=== PATIENT | female | born 1965 | race Caucasian/White ===

== ENCOUNTER 2020-07-05 18:47 | Inpatient (IN) | payer MEDICAID ==
[~2020-07-05] VITALS: Ht 160 cm; Wt 84.1 kg
[2020-07-05 19:01] VITALS: Ht 160 cm; Wt 84.1 kg
[2020-07-05 20:32] LABS: microscopic required? YES; urine erythrocyte NEGATIVE (NEGATIVE)
[2020-07-05 20:38] LABS: BASOPHIL % 0.4 % (0-2); PLATELET COUNT 183 x10^3mcL (130-400); RED CELL DISTRIBUTION WIDTH 13.6 % (11.5-14.5)
[2020-07-05 20:42] LABS: CALCIUM 8.6 mg/dL (8.5-10.1); CARBON DIOXIDE 25.4 mmol/L (21-32); CHLORIDE SERUM 100 mmol/L (98-107); CREATININE SERUM 0.8 mg/dL (0.6-1.0); GFR1 > 60 mL/min; GLUCOSE SERUM 176 mg/dL (74-106); POTASSIUM SERUM 3.1 mmol/L (3.5-5.1); SODIUM SERUM 137 mmol/L (136-145)
[2020-07-05 20:47] LABS: ALBUMIN 3.8 g/dL (3.4-5.0); ALKALINE PHOSPHATASE 107 U/L (46-116); ALT/SGPT 104 U/L (14-59); AST/SGOT 45 U/L (15-37); BILIRUBIN TOTAL 0.35 mg/dL (0.20-1.00); TOTAL PROTEIN, SERUM 7.4 g/dL (6.4-8.2)
[2020-07-05 21:05] LABS: LIPASE 9623 IU/L (73-393)
--- NOTE | 2020-07-05 21:52 | NUR ---
OBDULIA PATTEN [phone]
--- NOTE | 2020-07-05 23:17 | NUR ---
VERBAL CONSENT FROM PATIENT TO SPEAK TO DAUGHTER EARLINE [phone] ABOUT DX AND ADMISSION TO HOSPITAL.
[2020-07-05] MEDS ORDERED: ZESTRIL2.5 MG (23:21)
[2020-07-05] MEDS ORDERED: LIPI10 (23:21)
--- NOTE | 2020-07-05 23:22 | NUR ---
PATIENT HAD DRESS AND SANDALS
--- NOTE | 2020-07-06 | NUR ---
PATIENT FAMILY BROUGHT CELL PHONE
--- NOTE | 2020-07-06 00:09 | NUR ---
REPORT GIVEN TO SANDRA BOLAÑOS TO ASSUME CARE OF PT.
--- NOTE | 2020-07-06 00:11 | NUR ---
RECEIVED REPORT FROM ER NURSE TY
[2020-07-06 01:01] VITALS: BP 135/67
--- NOTE | 2020-07-06 01:10 | NUR ---
LATE ENTRY; 0033h - RECEIVED FROM ER TRANSPORTED VIA [facility]. AWAKE AND ALERT, ORIENTED TO NAME, PLACE, TIME AND SITUATION. SPEECH CLEAR AND APPROPRIATE. AMBULATED WITH STEADY GAIT INTO ROOM. BREATHING EVEN AND UNLABORED ON ROOM AIR. SALINE LOCK TO RIGHT AC FLUSHED WELL. PT CAME UP WITH BAG OF NS 1LITER, ABOUT 800ML LEFT IN BAG. PLACED TO INFUSION PUMP AND REGULATED AT 100ML/HR ORDERED. ALSO CAME UP WITH BAG OF K RIDER 20MEQ. PLACED TO INFUSION PUMP, ATTACHED TO Y CONNECTOR OF MAIN IVF. ABOUT 60ML LEFT IN BAG. REGULATED AT 50ML/HR. PT STATED SOUGHT ADMISSION DUE TO SEVERE ABDOMINAL PAIN. STATED PAIN LEVEL 7/10 AT THIS TIME, PAGED DR. MAGALLON. DENIES HAVING NAUSEA AT THIS TIME, DENIES HAVING DIARRHEA. ADMISSION HISTORY AND ASSESSMENT DONE. INSTRUCTED NEED TO BE NPO. INSTRUCTED ON USE OF CALL LIGHT TO CALL FOR ASSISTANCE, PLACED WITHIN EASY REACH.
--- NOTE | 2020-07-06 01:15 | NUR ---
CALLED DR. ALFONSO ON RESIDENTS CALL PHONE. INFORMED PT HAVING 7/10 ABDOMINAL PAIN.
--- NOTE | 2020-07-06 01:45 | NUR ---
UNABLE TO KEEP RIGHT ARM STRAIGHT. IV KEEPS BEEPING. NEW IV INSERTED TO LEFT FOREARM, 22G. ATTACHED IVF TO THIS NEW IV, SALINE LOCKED RIGHT AC IV.
--- NOTE | 2020-07-06 01:52 | NUR ---
NORCO 7.5/325MG TABLET WAS ADMINISTERED PO PER PRN ORDER FOR PAIN.
[2020-07-06 02:02] LABS: CHOLESTEROL 161 mg/dL (<200); MAGNESIUM 1.8 mg/dL (1.8-2.4); PHOSPHOROUS 3.4 mg/dL (2.5-4.9)
[2020-07-06 02:03] LABS: T3 TOTAL 1.01 ng/mL
[2020-07-06 02:04] LABS: AMYLASE 296 U/L (25-115); CHOLESTEROL/HDL RATIO 7.7; HDL CHOLESTEROL 21 mg/dL (40-60); TRIGLYCERIDES 570 mg/dL (<150)
[2020-07-06 02:10] LABS: FREE T4 0.97 ng/dL (0.76-1.46); FREE THYROXINE INDEX 1.9 ug/dL (1.4-4.5); T4(THYROXINE) 5.4 ug/dL (4.7-13.3)
--- NOTE | 2020-07-06 02:25 | NUR ---
lactic acid 2.5. paged dr. celeste
--- NOTE | 2020-07-06 02:45 | NUR ---
called residents house phone, spoke with dr. polanco, informed lactic acid 2.5
--- NOTE | 2020-07-06 02:52 | NUR ---
INCREASED IVF OF NS TO 250ML/HR PER NEW ORDER.
[2020-07-06 03:05] LABS: AMPHETAMINE QUAL UR NONE DETECTED (See below)
--- NOTE | 2020-07-06 04:01 | NUR ---
EYES CLOSED, BREATHING EVEN AND UNLABORED ON ROOM AIR. CALL LIGHT WITHIN EASY REACH.
--- NOTE | 2020-07-06 05:29 | NUR ---
MARGA HERNANDEZ REPORTED PT STATED SHE VOMITTED AND HAVING ABD PAIN. ASSESSED PT, STATED HAVING 7/10 ABD PAIN, BUT DENIED HAVING NAUSEA AT THIS TIME. TORADOL 30MG IN 10ML NS ADMINISTERED SLOW IVP FOR PAIN. ALSO EXPLAINED TO PT NEED TO DO BLOOD SUGAR CHECKS. VERBALIZED UNDERSTANDING.
--- NOTE | 2020-07-06 05:49 | NUR ---
NEED DIET ORDERS. PAGED DR. MAGALLON.
--- NOTE | 2020-07-06 06:21 | NUR ---
KEPT PT NPO SINCE ADMISSION TO UNIT EXCEPT FOR MEDICATIONS.
--- NOTE | 2020-07-06 06:21 | NUR ---
DR. PETTY INFORMED PT NEEDS DIET ORDER
--- NOTE | 2020-07-06 06:47 | NUR ---
EYES CLOSED, BREATHING EVEN AND UNLABORED. HOB KEPT ELEVATED 30 DEG. KEPT NPO. CALL LIGHT WITHIN EASY REACH. IVF OF NS AT 250ML/HR INFUSING WELL TO IV SITE TO LEFT FOREARM, IV SITE FREE FROM REDNESS OR SWELLING.
--- NOTE | 2020-07-06 07:05 | NUR ---
RECIEVED PT RESTING IN BED WITH NO C/O ANY DISTRESS. A/O X4 WITH NO COULTER OR DIZZINESS. TELE#20 CONNECTED TO PT AND SHE DENIES ANY CP OR PRESSURE. LFA IV CDI AND PATENT RUNNING 250ML/HR NS. PT ABDOMEN DISTENDED. PREVIOUS HEALED SURGICAL SCARS NOTED TO LOWER ABDOMEN AREA UMBILICUS. MADE AWARE OF LACTID ACID LEVEL. SAFETY PRECAUTIONS IN PLACE, CALL LIGHT WITHN REACH, WILL MONITOR.
--- NOTE | 2020-07-06 07:08 | NUR ---
IN NO ACUTE DISTRESS. ENDORSED TO NURSE BENEDICT
[2020-07-06 07:34] LABS: BASOPHIL % 0.1 % (0-2); PLATELET COUNT 168 x10^3mcL (130-400)
[2020-07-06 07:52] LABS: CALCIUM 7.7 mg/dL (8.5-10.1); CARBON DIOXIDE 23.7 mmol/L (21-32); CHLORIDE SERUM 101 mmol/L (98-107); CREATININE SERUM 0.7 mg/dL (0.6-1.0); GFR1 > 60 mL/min; GLUCOSE SERUM 216 mg/dL (74-106); MAGNESIUM 1.6 mg/dL (1.8-2.4); PHOSPHOROUS 3.1 mg/dL (2.5-4.9); POTASSIUM SERUM 3.7 mmol/L (3.5-5.1); SODIUM SERUM 136 mmol/L (136-145)
[2020-07-06 08:41] VITALS: BP 112/71
--- NOTE | 2020-07-06 08:56 | NUR ---
NORCO GIVEN PER EMAR FOR C/O 06/18 ABD PAIN, WILL REASSESS.
[2020-07-06 12:32] VITALS: BP 111/51
[2020-07-06 16:30] VITALS: BP 97/50
[2020-07-06 16:45] VITALS: BP 101/52
--- NOTE | 2020-07-06 17:04 | NUR ---
NORCO GIVEN PER EMAR FOR C/O 05/18 ABD PAIN, WILL MONITOR.
--- NOTE | 2020-07-06 18:23 | NUR ---
PT RESTING IN BED WITH NO C/O ANY DISTRESS. A/O X4 WITH NO COULTER OR DIZZINESS. TELE #20 CONNECTED TO PT AND SHE DENIES ANY CP OR PRESSURE. LFA IV CDI AND PATENT RUNNING LR AT 78ML/HR. PT ABDOMEN DISTENDED. PREVIOUS HEALED SURGICAL SCARS NOTED TO LOWER ABDOMEN AREA UMBILICUS. VS WNL. SAFETY PRECAUTIONS IN PLACE, CALL LIGHT WITHN REACH, WILL ENDORSE CARE OVER TO NIGHT NURSE.
--- NOTE | 2020-07-06 20:00 | NUR ---
Received patient resting in bed. Abdomen distended and hard. Gabonese speaking. Will get in touch with the MD to inquire if they want pt to be on any antibiotics. NPO at this time. LR infusing per orders. IV patent,clean dry and intact. No distress at this time. Continuing to monitor.
[2020-07-06 21:11] VITALS: BP 108/60
[2020-07-07 05:25] VITALS: BP 107/61
--- NOTE | 2020-07-07 06:52 | NUR ---
CALLED MD AND RECEIVED ORDER TO ALLOW PT TO SHOWER. COVERED IV, REMOVED TELE, AND PLACEED SHOWER CHAIR IN SHOWER. SUPPLIES GIVEN. WILL REPLACE ELECTRODES AND CONNECT IV FLUID WHEN OUT. STEADY GAIT OBSERVED.
[2020-07-07 06:59] LABS: CARBON DIOXIDE 20.8 mmol/L (21-32); CREATININE SERUM 1.2 mg/dL (0.6-1.0); MAGNESIUM 1.9 mg/dL (1.8-2.4); PHOSPHOROUS 3.2 mg/dL (2.5-4.9); POTASSIUM SERUM 4.1 mmol/L (3.5-5.1)
--- NOTE | 2020-07-07 07:05 | NUR ---
RECIEVED PT RESTING IN BED WITH NO C/O ANY DISTRESS. A/O X4 WITH NO COULTER OR DIZZINESS. PT TACHYCARDIC AT 120, MD AWARE. NIGHT NURSE REPORTED 120'S HR DURING NOC ALSO. TELE#20 CONNECTED TO PT AND SHE DENIES ANY CP OR PRESSURE. LFA IV CDI AND PATENT RUNNING LR AT 75ML/HR. PT ABDOMEN DISTENDED. PREVIOUS HEALED SURGICAL SCARS NOTED TO LOWER ABDOMEN/UMBILICUS AREA. MADE AWARE OF LACTID ACID LEVEL. SAFETY PRECAUTIONS IN PLACE, CALL LIGHT WITHN REACH, WILL MONITOR.
[2020-07-07 07:46] LABS: PLATELET COUNT 185 x10^3mcL (130-400); RED CELL DISTRIBUTION WIDTH 14.2 % (11.5-14.5)
--- NOTE | 2020-07-07 08:36 | NUR ---
NORCO GIVEN FOR C/O 6/10 ABD PAIN, WILL MONITOR.
[2020-07-07 08:45] VITALS: BP 115/71
[2020-07-07 11:40] LABS: BAND NEUTROPHIL 2 % (0-10); MONOCYTE 6 % (0-7); SEGMENTED NEUTROPHILS 78 % (37-75); rbc morphology (normal/abnorm) NORMAL (NORMAL)
[2020-07-07 15:29] VITALS: BP 121/67
--- NOTE | 2020-07-07 15:30 | NUR ---
PT PUT ON 2/L O2 NC PER DR. KAMINSKI FOR C/O SOB. PT SATURATION NOW AT 93-94%
--- NOTE | 2020-07-07 18:23 | NUR ---
PT RESTING IN BED WITH NO C/O ANY DISTRESS. A/O X4 WITH NO COULTER OR DIZZINESS. PT TACHYCARDIC AT 115-120'S, MD AWARE. TELE#20 CONNECTED TO PT AND SHE DENIES ANY CP OR PRESSURE. PT CONNECTED TO 2/L O2 NC. LFA IV CDI AND PATENT RUNNING LR AT 175ML/HR. PT ABDOMEN DISTENDED. PREVIOUS HEALED SURGICAL SCARS NOTED TO LOWER ABDOMEN/UMBILICUS AREA. SAFETY PRECAUTIONS IN PLACE, CALL LIGHT WITHIN REACH, WILL ENDORSE CARE OVER TO NIGHT NURSE.
--- NOTE | 2020-07-07 19:20 | NUR ---
RECEIVED PT IN BED AWAKE, ALERT,ORIENTED X4. MO SOB NOTED. BOWEL SOUNDS ACTIVE. ABDOMEN IS DISTENDED AND FIRM. SHE HAS NO C/O PAIN AT THIS TIME. PT STATED SHE TOLERATED THE CLEAR LIQUID DIET. IV SITE TO LTFA W/ SWELLING NOTED. IV REMOVED. WILL START NEW IV.
--- NOTE | 2020-07-07 20:00 | NUR ---
STARTED NEW IV ON THE RTFA. PT TOLERATED PROCEDURE WELL.
[2020-07-07 21:03] VITALS: BP 111/73
--- NOTE | 2020-07-08 05:02 | NUR ---
PT SLEPT IN LONG INTERVALS. PT STATED ABDL PAIN IS MINIMAL AND TOLERABLE. SHE HAD NO EPISODE OF N/V. SHE AMBULATES TO THE RESTROOM. NO BM NOTED THIS SHIFT. IVF NS INFUSING AT 175 CC/HR VIA RTFA.
[2020-07-08 05:27] VITALS: BP 123/64
[2020-07-08 07:48] LABS: BASOPHIL % 0.7 % (0-2); PLATELET COUNT 173 x10^3mcL (130-400); RED CELL DISTRIBUTION WIDTH 14.3 % (11.5-14.5)
--- NOTE | 2020-07-08 08:20 | NUR ---
AT 0740 - RECEIVED PATIENT FROM NIGHT NURSE. AWAKE, ALERT AND ORIENTED. AMBULATING IN ROOM. C/O ABDOMINAL PAIN. MEDICATED WITH NORCO PER EMAR. NOW TAKING CLEAR LIQUID DIET. IV INFUSING LR AT 125 ML/HR.
[2020-07-08 08:29] LABS: CALCIUM 8.1 mg/dL (8.5-10.1); CARBON DIOXIDE 26.2 mmol/L (21-32); CHLORIDE SERUM 101 mmol/L (98-107); CREATININE SERUM 0.9 mg/dL (0.6-1.0); GFR1 > 60 mL/min; GLUCOSE SERUM 149 mg/dL (74-106); PHOSPHOROUS 1.6 mg/dL (2.5-4.9); POTASSIUM SERUM 3.4 mmol/L (3.5-5.1); SODIUM SERUM 135 mmol/L (136-145)
[2020-07-08 08:56] VITALS: BP 119/63
--- NOTE | 2020-07-08 09:01 | NUR ---
WAS ABLE TO TAKE CLEAR LIQUID BREAKFAST. REPORTS PAIN MEDICATION HAS BEEN EFFECTIVE. NOTED ABDOMEN DISTENDED AND FIRM. DR SHAFFER AT BEDSIDE EXAMINING PATIENT. ALSO SPOKE WITH PATIENT'S DAUGHTER PER PHONE.
--- NOTE | 2020-07-08 12:06 | NUR ---
AT 1050 - ADMINISTERED MIRALAX AND SIMETHACONE PER EMAR. PATIENT ALSO RECEIVED DULCOLAX SUPPOSITORY.
[2020-07-08 13:24] VITALS: BP 119/56
--- NOTE | 2020-07-08 13:31 | NUR ---
Initial Nutrition Assessment: Dominique Félix Gutierrez Retana [id number] Dx: Acute pancreatitis PMHx: HTN dx 2 years ago, HLD dx 7 years ago and GARCES dx 3 years ago PSHx: , abdominoplasty Labs: (07/08) Na:135L, BH, BUN:20H, Ca:8.1L, Phos:1.6L, WBC:12H (07/07) Lipase:727H, (07/06) A1c:6.5H Meds: Colace, Humulin PRN, Lactated ringers, Lantus, Lipitor, [place], Tylenol, Zofran. Heparin, Diet: Clear liquid PO Intakes: (07/07) NPO Ht: 63in, 5'3" Wt:185#, 84.085kg BMI:32.8kg/m2 (obesity class 1) IBW: 115#, 52kg %IBW:161% UBW: unable to assess Age: 54 y/o female Food Allergies: NKA Skin: intact Bob:21 Edema: none GI: active bowel sounds Last BM:07/05 Per H&P, pt admitted with c/o severe lower quadrant pain that started at 5pm. Pt reports 10/10 pain radiating towards her epigastric and suprapubic region. Per progress note 07/08, Lipase now normalized to 237. KUB has been ordered for increased abd distention to r/o obstruction or ileus. Pt has been started on Miralax and is still on CL diet. RD attempted to visit pt twice, pt was sleeping and pt was with RN. Per RN note 07/08, was able to take CL breakfast. Reports medication has been effective. Noted abd distended and firm. RD to follow up at next visit for diabetic diet education. Problem with: N/V/D/C: No Problems with: Chewing/Swallowing: No Current appetite: Fair Recent wt changes: %wt change: unable to assess Vitamin/Supplement: No vitamin/supplement listed on H&P Special Diet at Home: Regular per adult admission assessment Physical activity:unable to assess Education: unable to provide Estimated Nutritional Needs Based on adjusted body weight of 65 kg. Energy: 3375-7619 kcal/d (25-30 kcal/kg) Protein: 65-78gm/d (1-1.2 gm) Fluid: 1625-1950mL/d (1 mL/kcal) or per MD. Nutrition Diagnosis 1. Inadequate energy intake related to insufficient calories per diet order as evidenced by patient on clear liquid diet. Intervention 1. Recommend advance diet as tolerated [facility] diet. 2. RD to follow up at next visit for diabetic diet education. Monitor/Evaluate Goal: diet advancement and PO intake to meet 75% estimated needs Monitor: PO intake, Labs, GI function, Skin integrity, Weights. F/U in 3-5 days as moderate risk (07/11-07/13)
--- NOTE | 2020-07-08 13:32 | NUR ---
PATIENT REPORTS HAVING HAD 2 SMALL BOWEL MOVEMENTS FOLLOWING DULCOLAX SUPPOSITORY AND MIRALAX. ABDOMEN STIL DISTENDED AND FIRM. NO N/V. REMAINS ON CLEAR LIQUID DIET.
--- NOTE | 2020-07-08 13:32 | NUR ---
1. Recommend advance diet as tolerated [facility] diet. 2. RD to follow up at next visit for diabetic diet education.
[2020-07-08 17:56] VITALS: BP 101/58
--- NOTE | 2020-07-08 18:13 | NUR ---
AT 1530 - MEDICATED WITH NORCO FOR C/O ABDOMINAL PAIN. ABDOMEN REMAINS DISTENDED AND FIRM. AT 1700 - GIVEN ANOTHER DOSE OF SIMETHACONE. AT 1815 - ABDOMINAL AND BACK PAIN UNDER CONTROL AT THIS TIME. VSS. AFEBRILE. IV INFUSION OF LR REMAINS AT 175 ML/HR. STIL ON CLEAR LIQUID DIET. AMBULATES. WILL ENDORSE CARE TO NIGHT NURSE.
--- NOTE | 2020-07-08 19:15 | NUR ---
RECEIVED PT IN BED RESTING W/ EYES CLOSED. PT OPENED EYES WHEN GREETED. SHE IS ORIENTED X4. LUNGS CTA. NO SOB ON ROOM AIR. BOWEL SOUNDS ACTIVE. ABDOMEN STILL DISTENDED AND FIRM. SHE IS NOT C/O PAIN BUT STATED SHE FEELS GASSY. PER REPORT , PT HAD 2 SMALL BM AFTER MIRALAX AND DULCOLAX SUPPOSITORY . W/ IVF LR AT 175CC/HR VIA RTFA. CALL LIGHT W/IN REACH.
--- NOTE | 2020-07-08 20:37 | NUR ---
PT C/O ABDL PAIN 04/18. NORCO 7.5/325 MG PO GIVEN.
[2020-07-08 21:08] VITALS: BP 132/62
--- NOTE | 2020-07-09 04:22 | NUR ---
PT REQUESTED TO SHOWER. INFORMED DR. PETTY AND ORDER WRITTEN THAT PT MAY TAKE A SHOWER.
--- NOTE | 2020-07-09 04:50 | NUR ---
PT BACK TO BED AFTER TAKING A SHOWER. TELE MONITOR REAPPLIED. SHE IS IN STABLE CONDITION.
--- NOTE | 2020-07-09 05:03 | NUR ---
PT SLEPT IN LONG INTERVALS. SHE WAS MEDICATED FOR ABDL PAIN X1. NO C/O N/V. PT HAD NO BM THIS SHIFT. ABDOMEN STILL DISTENDED AND FIRM. SHE IS RESTING QUIETLY IN BED AFTER TAKING A SHOWER. IVF LR INFUSING WELL AT 175 CC/HR VIA RTFA.
[2020-07-09 05:10] VITALS: BP 113/61
[2020-07-09 07:02] LABS: BASOPHIL % 0.3 % (0-2); PLATELET COUNT 187 x10^3mcL (130-400); RED CELL DISTRIBUTION WIDTH 13.7 % (11.5-14.5)
[2020-07-09 07:25] LABS: CALCIUM 8.2 mg/dL (8.5-10.1); CARBON DIOXIDE 27.6 mmol/L (21-32); CHLORIDE SERUM 99 mmol/L (98-107); CREATININE SERUM 0.7 mg/dL (0.6-1.0); GFR1 > 60 mL/min; GLUCOSE SERUM 145 mg/dL (74-106); MAGNESIUM 1.9 mg/dL (1.8-2.4); PHOSPHOROUS 1.8 mg/dL (2.5-4.9); POTASSIUM SERUM 3.3 mmol/L (3.5-5.1); SODIUM SERUM 135 mmol/L (136-145)
--- NOTE | 2020-07-09 07:30 | NUR ---
PT ENDORSE TO ME THIS MORNING SITTING UP IN BED RESTING AA/O X4 [place]APANESE SPKING. BREATHING EVEN AND UNLABORED ON RA NO ACUTE RESP DISTRESS OR SOB NOTED. C/O ABD DISCOMFORT/ ABD FIRM AND DISTENTED/ PER PT LAST BM 07/08 /VOIDS FREELY. AMB. RFA INTACT AND PATENT/ INFUSING AT 175 ML/HR TOLERATING WELL. WILL CONTINUE TO MONITOR.
--- NOTE | 2020-07-09 08:09 | NUR ---
TELE 20 ST NOTED HR 100-105 NOTED/ DENIES ANY CP OR PRESSURE.
[2020-07-09 09:15] VITALS: BP 128/63
--- NOTE | 2020-07-09 09:30 | NUR ---
CURRENT TEMP 99.9 MEDICATED PER EMAR AND APPLIED COOLING MEASURES / WILL CONTINUE TO MONITOR.
--- NOTE | 2020-07-09 09:47 | NUR ---
DR SHAFFER AWARE OF PT ABD PAIN, RESP 28 AND PT IS NOW WHEEZING TO LEFT UPPER CHEST. PER DR. SHAFFER ORDER DC NS AT 175 ML/HR. PT SATING AT 96% OF RA WILL CONTINUE TO MONITOR.
[2020-07-09 12:51] VITALS: BP 100/62
[2020-07-09 17:07] VITALS: BP 117/68
--- NOTE | 2020-07-09 17:26 | NUR ---
PT PT HAS X TWO LARGE BM AND FEELS LESS GAS AND PRESSURE. WILL CONTINUE TO MONITOR.
--- NOTE | 2020-07-09 18:32 | NUR ---
NO ACUTE CHANGES AT THIS TIME, NO ACUTE RESP DISTRESS OR SOB NOTED/ DENIES ANY ABD PAIN OR DISCOMFORT AT THIS TIME. WILL ENDORSE TO INCOMING RN.
--- NOTE | 2020-07-09 20:00 | NUR ---
RECEIVED PT IN BED AWAKE, ALERT, ORIENTED X4. SPEECH CLEAR, [place] SPEAKING, BUT ABLE TO MAKE NEEDS KNOWN. LUNG SOUNDS CLEAR, BREATHING EASILY ON ROOM AIR. TELE [address] NO CHEST PAIN NOTED. BS ACTIVE IN ALL FOUR QUADS. ABD IS DISTENDED. LAST BM TODAY, LOOSE STOOL NOTED. VOIDING FREELY. PT ABLE TO USE BR, AMBULATES WITHOUT ASSISTANCE, GAIT STEADY. HEALED SCAR TO ABD. RFA HL, INTACT. MILD DISCOMFORT TO ABD, TYLENOL GIVEN ORDERED FOR MILD PAIN. SHIFT ASSESSMENT COMPLETED. CALL LIGHT WITHIN REACH. BED IS IN LOWEST POSITION WILL CONTINUE TO MONITOR CLOSELY.
[2020-07-09 21:36] VITALS: BP 108/55
--- NOTE | 2020-07-09 22:00 | NUR ---
PT RESTING IN BED. ALL DUE MEDS GIVEN FOR TONIGHT. CALL LIGHT WITHIN REACH. BED IS IN LOWEST POSITION. WILL CONTINUE TO MONITOR CLOSELY.
[2020-07-10 05:39] VITALS: BP 106/59
--- NOTE | 2020-07-10 06:50 | NUR ---
PT SLEPT WELL THROUGH OUT THE SHIFT. WOKE UP IN MILD DISCOMFORT, TYLENOL GIVEN ORDERED FOR PAIN. ALL NEEDS TENDED TO. WILL ENDORSE TO INCOMING SHIFT.
[2020-07-10 07:14] LABS: BASOPHIL % 0.2 % (0-2); PLATELET COUNT 222 x10^3mcL (130-400); RED CELL DISTRIBUTION WIDTH 14.3 % (11.5-14.5)
[2020-07-10 07:27] LABS: CALCIUM 8.4 mg/dL (8.5-10.1); CARBON DIOXIDE 30.3 mmol/L (21-32); CHLORIDE SERUM 98 mmol/L (98-107); CREATININE SERUM 0.7 mg/dL (0.6-1.0); GFR1 > 60 mL/min; GLUCOSE SERUM 138 mg/dL (74-106); MAGNESIUM 2.2 mg/dL (1.8-2.4); PHOSPHOROUS 2.6 mg/dL (2.5-4.9); SODIUM SERUM 135 mmol/L (136-145)
--- NOTE | 2020-07-10 07:30 | NUR ---
PT ENDORSE TO ME THIS MORNING, SITTING UP IN A CHAIR AA/O X4 BREATHING EVEN AND UNLABORED ON RA NO ACUTE RESP DISTRESS OR SOB NOTED. TELE 20 ST NOTED HR 104/ DENIES ANY CP OR PRESSURE. BOWEL SOUNDS ACTIVE IN ALL FOUR QUADS PER PT HAD LOOSE BM THIS AM/ FEELS LESS PRESSURE TO ABD. VOIDS FREELY. AMB. IV TO THE RFA INTACT AND PATENT/ HEPLOCKED. CALL LIGHT IN REACH. WILL CONTINUE TO MONITOR.
[2020-07-10 08:32] VITALS: BP 113/63
[2020-07-10] MEDS ORDERED: LIPI20 PO (11:06)
[2020-07-10] MEDS ORDERED: ZES10 PO (11:06)
[2020-07-10] MEDS ORDERED: SIMETHICONE80 MG CH (11:07)
[2020-07-10] MEDS ORDERED: MIRUD PO (11:33)
[2020-07-10 12:53] VITALS: BP 109/58
[2020-07-10 13:15] VITALS: BP 109/58
--- NOTE | 2020-07-10 16:05 | NUR ---
PT C/O ABD PAIN 5/10 MEDICATED PER EMAR.
[2020-07-10 16:33] VITALS: BP 114/66
--- NOTE | 2020-07-10 18:10 | NUR ---
EXPLAINED DC INSTRUCTIONS, NEW AND CONTINUED MEDS AND FOLLOW UP APPT FOR 07/12, PT AGREED AND SIGNED ALL DC INSTRUCTIONS. REMOVED IV TO RFA CATHETER TIP INTACT/ NO REDNESS OR SWELLING NOTED. RETURNED TELE 20 BACK TO TELE. PENDING DC HOME.
--- NOTE | 2020-07-10 19:19 | NUR ---
MARGA WALKER WHEELED PT DOWN TO FRONT OF HOSPITAL/ DAUGHTER WILL BE DRIVING HER HOME, PT IS CLEAR ON ALL DC INSTRUCTIONS/ DENIES ANY ABD PAIN OR DISCOMFORT. PT DC HOME.
== END 2020-07-10 19:41 | disposition home or self-care (01) | DRG 282 ==
LOC: ED 18:47 → DU 22:09
PROVIDERS: Emergency Medicine; ADMIT Internal Medicine; ATTEND Internal Medicine
DX: K85.90 Acute pancreatitis without necrosis or infection, unspecified (principal); E87.2 Acidosis; E11.65 Type 2 diabetes mellitus with hyperglycemia; E87.6 Hypokalemia; E78.5 Hyperlipidemia, unspecified; E78.1 Pure hyperglyceridemia; E66.9 Obesity, unspecified; Z71.3 Dietary counseling and surveillance; Z68.33 Body mass index [BMI] 33.0-33.9, adult; Z79.899 Other long term (current) drug therapy; F17.200 Nicotine dependence, unspecified, uncomplicated
CPT/HCPCS: 82962; 83880; 84439; G0378; G0480; J1644; J1815; J1885; J2405; J3010; J3475; J3480; J7030; J7120; Q0092